=== PATIENT | female | born 1940 | race Caucasian/White ===

== ENCOUNTER 2024-04-05 03:36 | Inpatient (IN) | payer MEDICARE, OTHER ==
[2024-04-05 16:58] LABS: #Basophils 0.09 10x3/uL (0.0-0.2); %Basophils 0.9 % (0.0-1.0); %Lymphocytes 23.6 % (21.0-51.0); %Monocytes 10.2 % (0.0-10.0); Hematocrit 21.6 % (36.0-47.0); Hemoglobin 6.7 g/dL (12.0-16.0); Mean Corpuscular Volume 96.9 fL (78.0-98.0); Mean Platelet Volume 10.8 fL (7.4-10.4); Platelet Count 355 10x3/uL (130-400); RBC Distribution Width 13.9 % (11.5-14.5); Red Blood Cell (RBC) Count 2.23 mill/uL (4.20-5.40)
[2024-04-05 16:59] LABS: Bacteria/HPF None Seen HPF (None Seen); Bilirubin Negative (Negative); Blood, Urine Negative (Negative); CAUTI Indications for Culture Alt mental st,lethar; Clarity Clear (Clear); Glucose, Urine (Dipstick) Normal (Negative); Ketone, Urine Negative (Negative); Leukocyte 25 Leu/uL (Negative); Nitrite Negative (Negative); Protein, Urine (Dipstick) Negative (Neg-Trace); RBC/HPF None Seen HPF (0-3); Specific Gravity, Urine 1.008 (1.002-1.036); Urobilinogen Normal mg/dL (Less than 2); WBC/HPF 0-3 HPF (0-3)
[2024-04-05 17:02] LABS: Urine Culture Reflex No No
[2024-04-05 17:17] LABS: ALT (SGPT) 11 U/L (8-55); AST (SGOT) 17 U/L (5-34); Albumin 2.9 g/dL (3.4-4.8); Alkaline Phosphatase 78 U/L (40-110); Anion Gap 11 mmol/L (10-20); BUN (Urea Nitrogen) 12 mg/dL (9.8-20.1); Bilirubin, Total 0.3 mg/dL (0.2-1.2); Calc. Creatinine Clearance 0 mL/min (70-130); Calcium 9.4 mg/dL (7.8-10.44); Carbon Dioxide 27 mmol/L (23-31); Chloride 107 mmol/L (98-107); Estimated GFR 29; Globulin 3.2 g/dL (2.4-3.5); Glucose 103 mg/dL (83-110); Magnesium 1.9 mg/dL (1.6-2.6); Potassium 3.1 mmol/L (3.5-5.1); Protein, Total 6.1 g/dL (5.8-8.1); Sodium 142 mmol/L (136-145)
[2024-04-05 17:19] LABS: Troponin I 0.036 ng/mL (< 0.028)
[2024-04-05] MEDS ORDERED: Ondansetron ODT 4 MG TAB SL PRN (19:20)
[2024-04-05] MEDS ORDERED: Acetaminophen 325 MG TAB PO PRN ×2 (19:20→21:30)
[2024-04-05] MEDS ORDERED: Ondansetron PF 4 MG/2 ML Vial IVP PRN ×2 (19:20→21:30)
[2024-04-05 20:38] LABS: Troponin I 0.032 ng/mL (< 0.028)
[2024-04-05] MEDS ORDERED: Ondansetron ODT 4 MG TAB PO PRN (21:30)
[2024-04-05] MEDS ORDERED: Acetaminophen 650 MG Suppository PR PRN (21:30)
[2024-04-05 22:17] VITALS: BMI 28.2
[2024-04-06 00:27] LABS: Troponin I 0.032 ng/mL (< 0.028)
[2024-04-06 04:37] LABS: #Basophils 0.07 10x3/uL (0.0-0.2); %Basophils 0.9 % (0.0-1.0); %Eosinophils 5.7 % (0.0-10.0); %Lymphocytes 17.8 % (21.0-51.0); %Monocytes 9.4 % (0.0-10.0); Hematocrit 36.7 % (36.0-47.0); Hemoglobin 11.8 g/dL (12.0-16.0); Mean Corpuscular HGB CONC 32.2 g/dL (32.0-36.0); Mean Corpuscular Hemoglobin 29.7 pg (27.0-31.0); Mean Corpuscular Volume 92.4 fL (78.0-98.0); Mean Platelet Volume 11.1 fL (7.4-10.4); Platelet Count 237 10x3/uL (130-400); RBC Distribution Width 13.8 % (11.5-14.5); Red Blood Cell (RBC) Count 3.97 mill/uL (4.20-5.40)
[2024-04-06 04:58] LABS: ALT (SGPT) 11 U/L (8-55); AST (SGOT) 20 U/L (5-34); Albumin 2.8 g/dL (3.4-4.8); Alkaline Phosphatase 72 U/L (40-110); Anion Gap 14 mmol/L (10-20); BUN (Urea Nitrogen) 11 mg/dL (9.8-20.1); Bilirubin, Total 0.4 mg/dL (0.2-1.2); Calc. Creatinine Clearance 36 mL/min (70-130); Calcium 8.9 mg/dL (7.8-10.44); Carbon Dioxide 25 mmol/L (23-31); Chloride 106 mmol/L (98-107); Estimated GFR 32; Globulin 3.1 g/dL (2.4-3.5); Glucose 100 mg/dL (83-110); Protein, Total 5.9 g/dL (5.8-8.1); Sodium 142 mmol/L (136-145)
[2024-04-06] MEDS: NIFEdipine XL 30 MG ER.TAB PO SCH (09:15)
[2024-04-06] MEDS: hydrALAZINE 25 MG TAB PO SCH (09:15)
[2024-04-06] MEDS: Multivitamin W/ Minerals 1 TAB PO SCH (09:15)
[2024-04-06] MEDS: Polyethylene Glycol 3350 17 GM Packet PO SCH (09:15)
[2024-04-06] MEDS: Aspirin Chewable 81 MG TAB PO SCH (09:15)
[2024-04-06] MEDS: CO Q-10 CAPSULE 100 MG PO SCH (09:15)
[2024-04-06] MEDS: Carvedilol 25 MG TAB PO SCH (09:15)
[2024-04-06] MEDS: Enoxaparin 30 MG (0.3 mL) SYRINGE SC SCH (09:22)
[2024-04-06] MEDS: Potassium Chloride 20 MEQ TAB PO SCH (11:17)
[2024-04-06 11:25] VITALS: BMI 28.2
[2024-04-06] MEDS ORDERED: Bisacodyl 5 MG TAB PO PRN (16:19)
[2024-04-06 17:06] LABS: Hematocrit 35.6 % (36.0-47.0); Hemoglobin 11.7 g/dL (12.0-16.0)
[2024-04-06 17:18] LABS: Potassium 3.9 mmol/L (3.5-5.1)
[2024-04-06] MEDS: Mirtazapine 15 MG TAB PO SCH (20:55)
[2024-04-06] MEDS: Atorvastatin Calcium 40 MG TAB PO SCH (20:55)
[2024-04-06] MEDS: Senokot S 8.6-50 MG TAB PO SCH (20:55)
[2024-04-06] MEDS ORDERED: QUEtiapine 25 MG TAB PO SCH (21:00)
[2024-04-07 05:10] LABS: ALT (SGPT) 9 U/L (8-55); AST (SGOT) 13 U/L (5-34); Albumin 2.5 g/dL (3.4-4.8); Alkaline Phosphatase 67 U/L (40-110); Anion Gap 13 mmol/L (10-20); BUN (Urea Nitrogen) 13 mg/dL (9.8-20.1); Bilirubin, Total 0.4 mg/dL (0.2-1.2); Calc. Creatinine Clearance 39 mL/min (70-130); Calcium 8.3 mg/dL (7.8-10.44); Carbon Dioxide 23 mmol/L (23-31); Chloride 112 mmol/L (98-107); Estimated GFR 36; Glucose 96 mg/dL (83-110); Potassium 3.7 mmol/L (3.5-5.1); Protein, Total 5.5 g/dL (5.8-8.1); Sodium 144 mmol/L (136-145)
[2024-04-07 05:31] LABS: #Basophils 0.06 10x3/uL (0.0-0.2); %Basophils 0.6 % (0.0-1.0); %Eosinophils 4.2 % (0.0-10.0); %Lymphocytes 14.5 % (21.0-51.0); %Monocytes 7.6 % (0.0-10.0); %Neutrophils 72.7 % (42.0-75.0); Hematocrit 35.9 % (36.0-47.0); Hemoglobin 11.4 g/dL (12.0-16.0); Mean Corpuscular HGB CONC 31.8 g/dL (32.0-36.0); Mean Corpuscular Hemoglobin 29.4 pg (27.0-31.0); Mean Corpuscular Volume 92.5 fL (78.0-98.0); Mean Platelet Volume 11.8 fL (7.4-10.4); Platelet Count 193 10x3/uL (130-400); RBC Distribution Width 14.1 % (11.5-14.5); Red Blood Cell (RBC) Count 3.88 mill/uL (4.20-5.40)
[2024-04-07] MEDS: Lactulose 20 GM (30 mL) UDCUP PO SCH (13:44)
[2024-04-08 05:01] LABS: #Basophils 0.05 10x3/uL (0.0-0.2); %Basophils 0.6 % (0.0-1.0); %Eosinophils 6.4 % (0.0-10.0); %Lymphocytes 20.3 % (21.0-51.0); %Monocytes 7.1 % (0.0-10.0); %Neutrophils 65.5 % (42.0-75.0); Hematocrit 36.5 % (36.0-47.0); Hemoglobin 11.5 g/dL (12.0-16.0); Mean Corpuscular HGB CONC 31.5 g/dL (32.0-36.0); Mean Corpuscular Hemoglobin 29.6 pg (27.0-31.0); Mean Corpuscular Volume 94.1 fL (78.0-98.0); Mean Platelet Volume 11.2 fL (7.4-10.4); Platelet Count 224 10x3/uL (130-400); RBC Distribution Width 14.1 % (11.5-14.5); Red Blood Cell (RBC) Count 3.88 mill/uL (4.20-5.40)
[2024-04-08 06:10] LABS: Anion Gap 10 mmol/L (10-20); BUN (Urea Nitrogen) 15 mg/dL (9.8-20.1); Calc. Creatinine Clearance 38 mL/min (70-130); Calcium 8.4 mg/dL (7.8-10.44); Carbon Dioxide 27 mmol/L (23-31); Chloride 111 mmol/L (98-107); Estimated GFR 35; Glucose 100 mg/dL (83-110); Potassium 3.8 mmol/L (3.5-5.1); Sodium 144 mmol/L (136-145)
[2024-04-08 16:50] VITALS: BP 131/63; TEMP 98.6
== END 2024-04-08 18:14 | disposition home or self-care (01) | DRG 948 ==
LOC: ERS 03:36 → 2NO 19:27 → OBSVTOIN 04-08 15:05
PROVIDERS: ADMIT Student in an Organized Health Care Education/Training Program; ATTEND Internal Medicine
DX: R41.0 Disorientation, unspecified (principal); I12.9 Hypertensive chronic kidney disease with stage 1 through stage 4 chronic kidney disease, or unspecified chronic kidney disease; E78.5 Hyperlipidemia, unspecified; D64.9 Anemia, unspecified; N18.9 Chronic kidney disease, unspecified; E87.70 Fluid overload, unspecified; I48.91 Unspecified atrial fibrillation; E87.6 Hypokalemia; K59.09 Other constipation; Z86.73 Personal history of transient ischemic attack (TIA), and cerebral infarction without residual deficits; Z90.49 Acquired absence of other specified parts of digestive tract; Z79.899 Other long term (current) drug therapy; Z88.0 Allergy status to penicillin; Z88.8 Allergy status to other drugs, medicaments and biological substances; Z91.048 Other nonmedicinal substance allergy status; Z88.2 Allergy status to sulfonamides
CPT/HCPCS: 36415; 36430; 51701; 70450; 71045; 74176; 80048; 80053; 81001; 83605; 83735; 83880; 84443; 84484; 85025; 86850; 86900; 86901; 87040; 87086; 93005; 96372; G0378; J1650; P9016

== ENCOUNTER 2024-04-30 13:26 | Inpatient (IN) | payer MEDICARE, OTHER ==
[2024-04-30 15:04] LABS: #Basophils 0.07 10x3/uL (0.0-0.2); %Basophils 0.7 % (0.0-1.0); %Eosinophils 4.7 % (0.0-10.0); %Lymphocytes 16.7 % (21.0-51.0); %Monocytes 6.8 % (0.0-10.0); %Neutrophils 70.7 % (42.0-75.0); Hematocrit 36.8 % (36.0-47.0); Mean Corpuscular HGB CONC 32.6 g/dL (32.0-36.0); Mean Corpuscular Hemoglobin 29.9 pg (27.0-31.0); Mean Corpuscular Volume 91.5 fL (78.0-98.0); Mean Platelet Volume 10.1 fL (7.4-10.4); Platelet Count 258 10x3/uL (130-400); RBC Distribution Width 13.9 % (11.5-14.5); Red Blood Cell (RBC) Count 4.02 mill/uL (4.20-5.40)
[2024-04-30 15:20] LABS: ALT (SGPT) 12 U/L (8-55); AST (SGOT) 16 U/L (5-34); Alkaline Phosphatase 64 U/L (40-110); Anion Gap 12 mmol/L (10-20); BUN (Urea Nitrogen) 28 mg/dL (9.8-20.1); Bilirubin, Total 0.3 mg/dL (0.2-1.2); Calc. Creatinine Clearance 0 mL/min (70-130); Carbon Dioxide 31 mmol/L (23-31); Chloride 105 mmol/L (98-107); Estimated GFR 20; Globulin 3.9 g/dL (2.4-3.5); Glucose 168 mg/dL (83-110); Potassium 3.4 mmol/L (3.5-5.1); Protein, Total 6.9 g/dL (5.8-8.1); Sodium 145 mmol/L (136-145)
[2024-04-30 16:01] LABS: Bacteria/HPF 4+ HPF (None Seen); Bilirubin Negative (Negative); Blood, Urine Trace (Negative); CAUTI Indications for Culture Dysuria,urgency,freq; Clarity Extra Turbid (Clear); Glucose, Urine (Dipstick) Normal (Negative); Ketone, Urine Negative (Negative); Leukocyte 500 Leu/uL (Negative); Nitrite Negative (Negative); Protein, Urine (Dipstick) 70 mg/dL (Neg-Trace); Specific Gravity, Urine 1.009 (1.002-1.036); Urobilinogen Normal mg/dL (Less than 2); WBC/HPF Greater than 50 HPF (0-3); pH, Urine 5.5 (5.0-9.0)
[2024-04-30 16:10] LABS: Urine Culture Reflex Yes Yes
[2024-04-30] MEDS ORDERED: LevoFLOXacin 750 mg/D5W 150 ml Premix Bag ONE (16:42)
[2024-04-30] MEDS ORDERED: Potassium Chloride 20 MEQ TAB ONE (16:42)
[2024-04-30] MEDS ORDERED: Bisacodyl 5 MG TAB PO PRN (17:52)
[2024-04-30] MEDS ORDERED: Ondansetron PF 4 MG/2 ML Vial IVP PRN (17:52)
[2024-04-30 20:14] VITALS: BMI 26.9
[2024-05-01 06:18] LABS: Anion Gap 15 mmol/L (10-20); BUN (Urea Nitrogen) 26 mg/dL (9.8-20.1); Calc. Creatinine Clearance 26 mL/min (70-130); Calcium 8.9 mg/dL (7.8-10.44); Carbon Dioxide 26 mmol/L (23-31); Chloride 106 mmol/L (98-107); Estimated GFR 24; Glucose 88 mg/dL (83-110); Potassium 3.7 mmol/L (3.5-5.1); Sodium 143 mmol/L (136-145)
[2024-05-01] MEDS ORDERED: Non-Formulary Item 1 EACH (Aspirin [Vazalore] 81 MG Capsule) PO SCH (09:00)
[2024-05-01] MEDS ORDERED: LACTOBACILLUS ACIDOPHILUS PO SCH (09:00)
[2024-05-01] MEDS: NIFEdipine XL 30 MG ER.TAB PO SCH (09:35)
[2024-05-01] MEDS: Cyanocobalamin (Vitamin B-12) 1,000 MCG TAB PO SCH (09:36)
[2024-05-01] MEDS: Senokot S 8.6-50 MG TAB PO SCH (09:36)
[2024-05-01] MEDS: Ciprofloxacin Lactate/D5W 400 MG in Premix 1 BAG IVPB SCH (09:36)
[2024-05-01] MEDS: Carvedilol 25 MG TAB PO SCH (09:36)
[2024-05-01] MEDS: Floranex 1 GM Packet PO SCH (09:36)
[2024-05-01] MEDS: Aspirin 81 mg Enteric Coated Tablet PO SCH (09:36)
[2024-05-01] MEDS: Enoxaparin 30 MG (0.3 mL) SYRINGE SC SCH (09:37)
[2024-05-01 10:39] VITALS: BMI 26.9
[2024-05-01] MEDS: hydrALAZINE 25 MG TAB PO SCH (12:17)
[2024-05-01 13:05] LABS: Bacteria/HPF 2+ HPF (None Seen); Bilirubin Negative (Negative); Blood, Urine 1+ (Negative); CAUTI Indications for Culture Alt mental st,lethar; Clarity Extra Turbid (Clear); Glucose, Urine (Dipstick) Normal (Negative); Ketone, Urine Negative (Negative); Leukocyte 500 Leu/uL (Negative); Nitrite Negative (Negative); Protein, Urine (Dipstick) 70 mg/dL (Neg-Trace); RBC/HPF 21-50 HPF (0-3); Specific Gravity, Urine 1.015 (1.002-1.036); Squamous Epithelial 0-3 HPF (0-3); Urobilinogen Normal mg/dL (Less than 2); WBC/HPF Greater than 50 HPF (0-3)
[2024-05-01] MEDS: Sodium Chloride 0.9% 1,000 ML IV SCH (15:27)
[2024-05-01] MEDS: Senokot S 8.6-50 MG TAB PO PRN (15:53)
[2024-05-01] MEDS ORDERED: LevoFLOXacin 750 mg/D5W 750 MG in Premix 1 BAG IVPB SCH (18:00)
[2024-05-01] MEDS ORDERED: Non-Formulary Item 1 EACH (Trazodone Hcl [Trazodone Hcl] 100 MG Tablet) PO SCH (21:00)
[2024-05-01] MEDS: traZODone HCl 50 MG TAB PO SCH (21:42)
[2024-05-01] MEDS: Atorvastatin Calcium 40 MG TAB PO SCH (21:42)
[2024-05-02 06:52] LABS: #Basophils 0.05 10x3/uL (0.0-0.2); %Basophils 0.6 % (0.0-1.0); %Eosinophils 6.7 % (0.0-10.0); %Lymphocytes 18.3 % (21.0-51.0); %Monocytes 9.5 % (0.0-10.0); %Neutrophils 64.5 % (42.0-75.0); Hematocrit 33.8 % (36.0-47.0); Hemoglobin 10.7 g/dL (12.0-16.0); Mean Corpuscular HGB CONC 31.7 g/dL (32.0-36.0); Mean Corpuscular Hemoglobin 28.9 pg (27.0-31.0); Mean Corpuscular Volume 91.4 fL (78.0-98.0); Mean Platelet Volume 10.8 fL (7.4-10.4); Platelet Count 256 10x3/uL (130-400); RBC Distribution Width 13.9 % (11.5-14.5)
[2024-05-02 07:15] LABS: Anion Gap 11 mmol/L (10-20); BUN (Urea Nitrogen) 20 mg/dL (9.8-20.1); Calc. Creatinine Clearance 30 mL/min (70-130); Calcium 8.5 mg/dL (7.8-10.44); Carbon Dioxide 27 mmol/L (23-31); Chloride 109 mmol/L (98-107); Estimated GFR 28; Glucose 99 mg/dL (83-110); Potassium 3.3 mmol/L (3.5-5.1); Sodium 144 mmol/L (136-145)
[2024-05-02] MEDS: Ciprofloxacin Lactate/D5W 200 MG in Premix 1 BAG IVPB SCH (08:16)
[2024-05-02] MEDS: Polyethylene Glycol 3350 17 GM Packet PO SCH (12:15)
[2024-05-02] MEDS: Acetaminophen 325 MG TAB PO PRN (13:40)
[2024-05-02] MEDS ORDERED: Meclizine HCl 25 MG TAB PO PRN (14:24)
[2024-05-02] MEDS ORDERED: LevoFLOXacin 500 mg/D5W 500 MG in Premix 1 BAG IVPB SCH (15:00)
[2024-05-03] MEDS ORDERED: Lactulose 20 GM (30 mL) UDCUP PO PRN (08:35)
[2024-05-03] MEDS: Lactulose 20 GM (30 mL) UDCUP PO SCH (09:29)
[2024-05-03 12:35] LABS: #Basophils 0.06 10x3/uL (0.0-0.2); %Basophils 0.5 % (0.0-1.0); %Eosinophils 4.6 % (0.0-10.0); %Lymphocytes 11.9 % (21.0-51.0); %Monocytes 6.1 % (0.0-10.0); %Neutrophils 76.6 % (42.0-75.0); Hematocrit 36.6 % (36.0-47.0); Hemoglobin 11.6 g/dL (12.0-16.0); Mean Corpuscular HGB CONC 31.7 g/dL (32.0-36.0); Mean Corpuscular Hemoglobin 29.6 pg (27.0-31.0); Mean Corpuscular Volume 93.4 fL (78.0-98.0); Mean Platelet Volume 10.8 fL (7.4-10.4); Platelet Count 250 10x3/uL (130-400); RBC Distribution Width 14.3 % (11.5-14.5); Red Blood Cell (RBC) Count 3.92 mill/uL (4.20-5.40)
[2024-05-03 12:53] LABS: Anion Gap 13 mmol/L (10-20); BUN (Urea Nitrogen) 22 mg/dL (9.8-20.1); Calc. Creatinine Clearance 29 mL/min (70-130); Calcium 8.7 mg/dL (7.8-10.44); Carbon Dioxide 25 mmol/L (23-31); Chloride 109 mmol/L (98-107); Estimated GFR 26; Glucose 125 mg/dL (83-110); Potassium 3.7 mmol/L (3.5-5.1); Sodium 143 mmol/L (136-145)
[2024-05-04 07:42] VITALS: TEMP 97.9
[2024-05-04 13:02] VITALS: BP 129/68
== END 2024-05-04 13:50 | disposition home or self-care (01) | DRG 689 ==
LOC: ERS 13:26 → T4-A 17:07
PROVIDERS: ADMIT Family Medicine; ATTEND Hospitalist
DX: N39.0 Urinary tract infection, site not specified (principal); G93.41 Metabolic encephalopathy; S82.142A Displaced bicondylar fracture of left tibia, initial encounter for closed fracture; R44.3 Hallucinations, unspecified; N17.9 Acute kidney failure, unspecified; I48.91 Unspecified atrial fibrillation; N18.9 Chronic kidney disease, unspecified; I12.9 Hypertensive chronic kidney disease with stage 1 through stage 4 chronic kidney disease, or unspecified chronic kidney disease; F39 Unspecified mood [affective] disorder; E78.5 Hyperlipidemia, unspecified; F41.9 Anxiety disorder, unspecified; B96.5 Pseudomonas (aeruginosa) (mallei) (pseudomallei) as the cause of diseases classified elsewhere; B95.2 Enterococcus as the cause of diseases classified elsewhere; E87.6 Hypokalemia; J32.9 Chronic sinusitis, unspecified; S82.832A Other fracture of upper and lower end of left fibula, initial encounter for closed fracture; Z91.018 Allergy to other foods; Z88.2 Allergy status to sulfonamides; Z88.0 Allergy status to penicillin; Z88.8 Allergy status to other drugs, medicaments and biological substances; Z79.82 Long term (current) use of aspirin; Z79.899 Other long term (current) drug therapy; Z98.890 Other specified postprocedural states; Z90.49 Acquired absence of other specified parts of digestive tract; Z86.73 Personal history of transient ischemic attack (TIA), and cerebral infarction without residual deficits
CPT/HCPCS: 36415; 70450; 80048; 80053; 81001; 84443; 85025; 85379; 86850; 86900; 86901; 87077; 87086; 87186; 93005; 93970; 94760; 96374; J0744; J1650; J1956; J7030

== ENCOUNTER 2024-06-11 18:33 | Inpatient (IN) | payer MEDICARE, OTHER ==
[2024-06-11 19:30] LABS: #Basophils 0.09 10x3/uL (0.0-0.2); %Basophils 0.7 % (0.0-1.0); %Eosinophils 2.6 % (0.0-10.0); %Lymphocytes 13.5 % (21.0-51.0); %Monocytes 7.5 % (0.0-10.0); %Neutrophils 75.3 % (42.0-75.0); Hematocrit 38.2 % (36.0-47.0); Hemoglobin 11.9 g/dL (12.0-16.0); Mean Corpuscular HGB CONC 31.2 g/dL (32.0-36.0); Mean Corpuscular Hemoglobin 29.2 pg (27.0-31.0); Mean Corpuscular Volume 93.6 fL (78.0-98.0); Platelet Count 254 10x3/uL (130-400); RBC Distribution Width 15.7 % (11.5-14.5); Red Blood Cell (RBC) Count 4.08 mill/uL (4.20-5.40)
[2024-06-11 19:47] LABS: ALT (SGPT) 12 U/L (8-55); AST (SGOT) 18 U/L (5-34); Albumin 3.1 g/dL (3.4-4.8); Alkaline Phosphatase 60 U/L (40-110); Anion Gap 15 mmol/L (10-20); BUN (Urea Nitrogen) 28 mg/dL (9.8-20.1); Bilirubin, Total 0.4 mg/dL (0.2-1.2); Calc. Creatinine Clearance 0 mL/min (70-130); Calcium 8.9 mg/dL (7.8-10.44); Carbon Dioxide 20 mmol/L (23-31); Chloride 109 mmol/L (98-107); Estimated GFR 28; Globulin 3.7 g/dL (2.4-3.5); Glucose 161 mg/dL (83-110); Potassium 4.1 mmol/L (3.5-5.1); Protein, Total 6.8 g/dL (5.8-8.1); Sodium 140 mmol/L (136-145)
[2024-06-11 19:52] LABS: Troponin I 0.026 ng/mL (< 0.028)
[2024-06-11 20:59] LABS: Bilirubin Negative (Negative); Blood, Urine 1+ (Negative); CAUTI Indications for Culture Alt mental st,lethar; Clarity Turbid (Clear); Glucose, Urine (Dipstick) Normal (Negative); Ketone, Urine Negative (Negative); Leukocyte 500 Leu/uL (Negative); Nitrite Negative (Negative); Protein, Urine (Dipstick) 100 mg/dL (Neg-Trace); Squamous Epithelial 0-3 HPF (0-3); Urobilinogen Normal mg/dL (Less than 2); WBC/HPF Greater than 50 HPF (0-3)
[2024-06-11 21:16] LABS: Bacteria/HPF Rare-Few HPF (None Seen)
[2024-06-11 21:17] LABS: Urine Culture Reflex Yes Yes
[2024-06-11] MEDS ORDERED: Acetaminophen 650 MG Suppository PR PRN (22:24)
[2024-06-11 23:52] VITALS: BMI 26.6
[2024-06-12] MEDS: Sodium Chloride 0.9% 1,000 ML IV SCH (00:25)
[2024-06-12] MEDS: traZODone HCl 50 MG TAB PO PRN (00:28)
[2024-06-12] MEDS ORDERED: Loratadine 10 MG TAB PO PRN (00:45)
[2024-06-12] MEDS ORDERED: Bumetanide 1 MG TAB PO PRN (00:55)
[2024-06-12 04:36] LABS: #Basophils 0.09 10x3/uL (0.0-0.2); %Basophils 0.8 % (0.0-1.0); %Eosinophils 3.8 % (0.0-10.0); %Lymphocytes 17.3 % (21.0-51.0); %Monocytes 8.8 % (0.0-10.0); Hematocrit 33.1 % (36.0-47.0); Hemoglobin 10.4 g/dL (12.0-16.0); Mean Corpuscular HGB CONC 31.4 g/dL (32.0-36.0); Mean Corpuscular Volume 92.2 fL (78.0-98.0); Mean Platelet Volume 10.5 fL (7.4-10.4); Platelet Count 239 10x3/uL (130-400); RBC Distribution Width 15.7 % (11.5-14.5); Red Blood Cell (RBC) Count 3.59 mill/uL (4.20-5.40)
[2024-06-12 04:47] LABS: Anion Gap 13 mmol/L (10-20); BUN (Urea Nitrogen) 26 mg/dL (9.8-20.1); Calc. Creatinine Clearance 30 mL/min (70-130); Calcium 8.5 mg/dL (7.8-10.44); Carbon Dioxide 26 mmol/L (23-31); Chloride 109 mmol/L (98-107); Estimated GFR 28; Glucose 116 mg/dL (83-110); Potassium 3.8 mmol/L (3.5-5.1); Sodium 144 mmol/L (136-145)
[2024-06-12] MEDS ORDERED: NIFEdipine XL 30 MG ER.TAB PO SCH (09:00)
[2024-06-12] MEDS: hydrALAZINE 25 MG TAB PO SCH (09:18)
[2024-06-12] MEDS: Multivit, Therapeutic 1 TAB PO SCH (09:18)
[2024-06-12] MEDS: Amlodipine 5 MG TAB PO SCH (09:18)
[2024-06-12] MEDS: Cyanocobalamin (Vitamin B-12) 1,000 MCG TAB PO SCH (09:18)
[2024-06-12] MEDS: CO Q-10 CAPSULE 100 MG PO SCH (09:18)
[2024-06-12] MEDS: Carvedilol 6.25 MG TAB PO SCH (09:18)
[2024-06-12] MEDS: Aspirin 81 mg Enteric Coated Tablet PO SCH (09:18)
[2024-06-12] MEDS: Acidophilus Lactiobac CAPSULE PO SCH (11:04)
[2024-06-12] MEDS: Acetaminophen 325 MG TAB PO PRN (13:38)
[2024-06-12] MEDS: Atorvastatin Calcium 40 MG TAB PO SCH (20:29)
[2024-06-12] MEDS: risperiDONE 0.25 MG TAB PO SCH (20:29)
[2024-06-12] MEDS: traZODone HCl 50 MG TAB PO SCH (20:30)
[2024-06-13] MEDS: Saccharomyces boulardii 250 MG CAP PO SCH ×2 (12:11→12:17)
[2024-06-14 19:48] VITALS: BP 145/67; TEMP 98.7
[2024-06-15] MEDS ORDERED: FLU (Fluad Triv) TS24-25 (65UP)/MF59C/PF 45 MCG/0.5 ML Syringe IM ONE (09:00)
== END 2024-06-14 21:50 | disposition home or self-care (01) | DRG 948 ==
LOC: ERS 18:33 → T4-B 21:48 → INTOOBSV 21:48 → OBSVTOIN 06-12 21:06
PROVIDERS: ADMIT Internal Medicine; ATTEND Student in an Organized Health Care Education/Training Program
DX: R41.82 Altered mental status, unspecified (principal); F05 Delirium due to known physiological condition; F03.94 Unspecified dementia, unspecified severity, with anxiety; I48.0 Paroxysmal atrial fibrillation; E11.22 Type 2 diabetes mellitus with diabetic chronic kidney disease; N18.32 Chronic kidney disease, stage 3b; D64.9 Anemia, unspecified; E78.5 Hyperlipidemia, unspecified; I12.9 Hypertensive chronic kidney disease with stage 1 through stage 4 chronic kidney disease, or unspecified chronic kidney disease; Z86.73 Personal history of transient ischemic attack (TIA), and cerebral infarction without residual deficits; Z88.8 Allergy status to other drugs, medicaments and biological substances; Z88.2 Allergy status to sulfonamides; Z88.0 Allergy status to penicillin; Z91.018 Allergy to other foods; Z90.49 Acquired absence of other specified parts of digestive tract
CPT/HCPCS: 36415; 36416; 71045; 80048; 80053; 81001; 83605; 84145; 84484; 85025; 87077; 87086; 87186; 93005; G0378; J7030

== ENCOUNTER 2024-08-27 07:51 | Inpatient (IN) | payer MEDICARE, OTHER ==
[2024-08-27 08:28] LABS: #Basophils 0.07 10x3/uL (0.0-0.2); %Basophils 0.8 % (0.0-1.0); %Lymphocytes 15.6 % (21.0-51.0); %Monocytes 8.1 % (0.0-10.0); %Neutrophils 69.3 % (42.0-75.0); Hematocrit 36.1 % (36.0-47.0); Hemoglobin 11.6 g/dL (12.0-16.0); Mean Corpuscular HGB CONC 32.1 g/dL (32.0-36.0); Mean Corpuscular Hemoglobin 29.6 pg (27.0-31.0); Mean Corpuscular Volume 92.1 fL (78.0-98.0); Mean Platelet Volume 10.6 fL (7.4-10.4); Platelet Count 207 10x3/uL (130-400); RBC Distribution Width 14.6 % (11.5-14.5); Red Blood Cell (RBC) Count 3.92 mill/uL (4.20-5.40)
[2024-08-27 08:46] LABS: Troponin I 0.079 ng/mL (< 0.028)
[2024-08-27 09:29] LABS: ALT (SGPT) 8 U/L (8-55); AST (SGOT) 16 U/L (5-34); Albumin 3.1 g/dL (3.4-4.8); Alkaline Phosphatase 56 U/L (40-110); Anion Gap 12 mmol/L (10-20); BUN (Urea Nitrogen) 28 mg/dL (9.8-20.1); Bilirubin, Total 0.3 mg/dL (0.2-1.2); Calc. Creatinine Clearance 0 mL/min (70-130); Calcium 8.6 mg/dL (7.8-10.44); Carbon Dioxide 22 mmol/L (23-31); Chloride 113 mmol/L (98-107); Estimated GFR 21; Globulin 3.7 g/dL (2.4-3.5); Glucose 85 mg/dL (83-110); Lipase 17 U/L (8-78); Potassium 3.6 mmol/L (3.5-5.1); Protein, Total 6.8 g/dL (5.8-8.1); Sodium 143 mmol/L (136-145)
[2024-08-27] MEDS ORDERED: cefTRIAXone (ROCEPHIN) 1 GM VIAL ONE (11:44)
[2024-08-27] MEDS ORDERED: Sodium Chloride 0.9% 100 ML ONE (11:44)
[2024-08-27 11:57] LABS: Bacteria/HPF None Seen HPF (None Seen); Bilirubin Negative (Negative); Blood, Urine Negative (Negative); CAUTI Indications for Culture Dysuria,urgency,freq; Clarity Turbid (Clear); Glucose, Urine (Dipstick) Normal (Negative); Ketone, Urine 10 mg/dL (Negative); Leukocyte 25 Leu/uL (Negative); Nitrite Negative (Negative); Protein, Urine (Dipstick) 70 mg/dL (Neg-Trace); RBC/HPF 0-3 HPF (0-3); Specific Gravity, Urine 1.017 (1.002-1.036); Urobilinogen Normal mg/dL (Less than 2); WBC/HPF None Seen HPF (0-3); pH, Urine 5.5 (5.0-9.0)
[2024-08-27 11:59] LABS: Urine Culture Reflex No No
[2024-08-27] MEDS ORDERED: Acetaminophen 325 MG TAB PO PRN (12:31)
[2024-08-27] MEDS ORDERED: Ondansetron PF 4 MG/2 ML Vial IVP PRN (12:31)
[2024-08-27] MEDS ORDERED: Ondansetron ODT 4 MG TAB PO PRN (12:31)
[2024-08-27 12:47] VITALS: BMI 28.1
[2024-08-27] MEDS ORDERED: Azithromycin 500 MG VIAL ONE (13:33)
[2024-08-27] MEDS ORDERED: Mineral Oil ENEMA ONE (13:51)
[2024-08-27] MEDS: Sodium Chloride 0.9% 1,000 ML IV SCH (14:08)
[2024-08-27] MEDS: Mineral Oil ENEMA PR SCH (14:36)
[2024-08-27] MEDS ORDERED: Bisacodyl 10 MG SUPP PR PRN (15:35)
[2024-08-27] MEDS ORDERED: Melatonin 3 MG TAB PO PRN (15:50)
[2024-08-27] MEDS ORDERED: Guaifenesin DM 100-10/5 ML UDCUP PO PRN (15:54)
[2024-08-27] MEDS: Carvedilol 25 MG TAB PO SCH (18:26)
[2024-08-27] MEDS: GoLYTELY 4,000 ml Bottle PO SCH (18:50)
[2024-08-27] MEDS: risperiDONE 0.25 MG TAB PO SCH (21:05)
[2024-08-27] MEDS: Heparin 5,000 UNITS/ML VIAL SC SCH (21:07)
[2024-08-27] MEDS: Amlodipine 5 MG TAB PO SCH (21:07)
[2024-08-27] MEDS: Senokot S 8.6-50 MG TAB PO SCH (21:07)
[2024-08-27] MEDS: traZODone HCl 50 MG TAB PO SCH (21:09)
[2024-08-28 02:16] LABS: Troponin I 0.094 ng/mL (< 0.028)
[2024-08-28 04:29] LABS: #Basophils 0.05 10x3/uL (0.0-0.2); %Basophils 0.7 % (0.0-1.0); %Eosinophils 8.2 % (0.0-10.0); %Lymphocytes 20.4 % (21.0-51.0); %Monocytes 9.7 % (0.0-10.0); %Neutrophils 60.7 % (42.0-75.0); Hematocrit 32.1 % (36.0-47.0); Hemoglobin 10.3 g/dL (12.0-16.0); Mean Corpuscular HGB CONC 32.1 g/dL (32.0-36.0); Mean Corpuscular Volume 93.6 fL (78.0-98.0); Platelet Count 196 10x3/uL (130-400); RBC Distribution Width 14.4 % (11.5-14.5); Red Blood Cell (RBC) Count 3.43 mill/uL (4.20-5.40)
[2024-08-28 07:43] LABS: Anion Gap 14 mmol/L (10-20); BUN (Urea Nitrogen) 25 mg/dL (9.8-20.1); Calc. Creatinine Clearance 29 mL/min (70-130); Carbon Dioxide 19 mmol/L (23-31); Chloride 117 mmol/L (98-107); Estimated GFR 28; Glucose 87 mg/dL (83-110); Potassium 3.5 mmol/L (3.5-5.1); Sodium 146 mmol/L (136-145)
[2024-08-28] MEDS: Aspirin 81 mg Enteric Coated Tablet PO SCH (10:31)
[2024-08-29] MEDS: hydrALAZINE 25 MG TAB PO SCH ×2 (09:32→16:45)
[2024-08-29 13:13] LABS: #Basophils 0.06 10x3/uL (0.0-0.2); %Basophils 0.7 % (0.0-1.0); %Eosinophils 5.3 % (0.0-10.0); %Monocytes 7.1 % (0.0-10.0); %Neutrophils 73.6 % (42.0-75.0); Hematocrit 35.7 % (36.0-47.0); Hemoglobin 11.5 g/dL (12.0-16.0); Mean Corpuscular HGB CONC 32.2 g/dL (32.0-36.0); Mean Corpuscular Hemoglobin 29.6 pg (27.0-31.0); Mean Corpuscular Volume 91.8 fL (78.0-98.0); Mean Platelet Volume 10.2 fL (7.4-10.4); Platelet Count 193 10x3/uL (130-400); RBC Distribution Width 14.3 % (11.5-14.5); Red Blood Cell (RBC) Count 3.89 mill/uL (4.20-5.40)
[2024-08-29 13:48] LABS: Anion Gap 13 mmol/L (10-20); BUN (Urea Nitrogen) 18 mg/dL (9.8-20.1); Calc. Creatinine Clearance 41 mL/min (70-130); Calcium 8.3 mg/dL (7.8-10.44); Carbon Dioxide 21 mmol/L (23-31); Chloride 115 mmol/L (98-107); Estimated GFR 41; Glucose 99 mg/dL (83-110); Potassium 3.8 mmol/L (3.5-5.1); Sodium 145 mmol/L (136-145)
[2024-08-29 20:14] VITALS: BP 152/75; TEMP 98.2
== END 2024-08-29 20:13 | disposition home health service (06) | DRG 682 ==
LOC: ERS 07:51 → ERHOLD 11:43 → PCU 16:13 → OBSVTOIN 08-28 14:20
PROVIDERS: ADMIT Internal Medicine; ATTEND Family Medicine
DX: N17.9 Acute kidney failure, unspecified (principal); J18.9 Pneumonia, unspecified organism; K59.00 Constipation, unspecified; N18.9 Chronic kidney disease, unspecified; I12.9 Hypertensive chronic kidney disease with stage 1 through stage 4 chronic kidney disease, or unspecified chronic kidney disease; E78.5 Hyperlipidemia, unspecified; I48.91 Unspecified atrial fibrillation; Z86.73 Personal history of transient ischemic attack (TIA), and cerebral infarction without residual deficits; I48.0 Paroxysmal atrial fibrillation; Z88.0 Allergy status to penicillin; Z88.2 Allergy status to sulfonamides; Z88.8 Allergy status to other drugs, medicaments and biological substances; Z91.018 Allergy to other foods; Z90.49 Acquired absence of other specified parts of digestive tract; Z79.82 Long term (current) use of aspirin
CPT/HCPCS: 0241U; 36415; 51701; 70450; 71250; 74018; 74177; 80048; 80053; 81001; 83690; 84484; 85025; 87428; 93005; 96361; 96365; 96367; 96372; G0378; J0456; J0696; J1644; J7030